=== PATIENT | male | born 1960 | race Caucasian/White ===

== ENCOUNTER 2016-09-20 16:12 | Emergency (ER) | payer OTHER ==
[~2016-09-20] VITALS: Ht 175.3 cm; Wt 100.0 kg
[2016-09-20 16:13] VITALS: BP 158/82; PULSE 63; RESP 15; TEMP 97.9; O2SAT 95
--- NOTE | 2016-09-20 17:20 | PD ---
HPI Chief Complaint: Pain: Acute or Chronic Time Seen by Provider: 17:20 Travel History International Travel<30 days: No Contact w/Intl Traveler<30days: No Traveled to known affect area: No History of Present Illness HPI 46-year-old male with PMH of multiple shoulder dislocations presents to the ED for evaluation of 3 day history of right shoulder pain. He can identify no acute injury. He states that he is unable to move the arm through normal range of motion. He denies numbness, tingling of the extremity. He was seen at the [place] and states that he had a "pain shot" in the buttock before presenting to the ED today. PFSH Social History Tobacco Use: No Allergies-Medications (Allergen,Severity, Reaction): Coded Allergies: Codeine (Verified Allergy, Severe, Anaphylaxis, 09/20/16) Reported Meds & Prescriptions Reported Meds & Active Scripts Active No Active Prescriptions or Reported Medications Review of Systems Except as stated in HPI: all other systems reviewed are Neg Physical Exam Narrative GENERAL: Well-nourished, well-developed white male in no acute distress. SKIN: Warm and dry. HEAD: Normocephalic. EYES: No scleral icterus. No injection or drainage. NECK: Supple, trachea midline. No JVD or lymphadenopathy. CARDIOVASCULAR: Regular rate and rhythm without murmurs, gallops, or rubs. RESPIRATORY: Breath sounds equal bilaterally. No accessory muscle use. GASTROINTESTINAL: Abdomen soft, non-tender, nondistended. MUSCULOSKELETAL: No cyanosis, or edema. FOCUSED RIGHT UPPER EXTREMITY EXAM: Right arm is in a sling. There is visible deformity of the right shoulder, mildly depressed as compared to the left shoulder. Tender to palpation of the anterior and posterior aspects of the right shoulder and proximal humerus. 5/5 media relations associate strength. Sensation intact to light touch distally. 2+ radial pulse. Cap refill less than 2 seconds. BACK: Nontender without obvious deformity. No CVA tenderness. Data Data Last Documented VS Vital Signs Date Time Temp Pulse Resp B/P Pulse Ox O2 Delivery O2 Flow Rate FiO2 09/20/16 16:13 97.9 63 15 158/82 95 Orders Shoulder, Complete (>2vws) (09/20/16 17:18) MDM Medical Decision Making Medical Screen Exam Complete: Yes Emergency Medical Condition: Yes Differential Diagnosis Fracture versus dislocation versus musculoskeletal pain versus other Narrative Course 46-year-old male with PMH of multiple shoulder dislocations presents to the ED for evaluation of 3 day history of right shoulder pain. He can identify no acute injury. He states that he is unable to move the arm through normal range of motion. He denies numbness, tingling of the extremity. He was seen at the [facility] and states that he had a "pain shot" in the buttock before presenting to the ED today. Vitals reviewed. Physical exam reveals a nontoxic appearing white male in no acute distress. The right arm is in a sling. There does appear to be some depression of the right shoulder as compared to the left. Patient has a strong media relations associate strength and is neurovascularly intact. Difficulties moving the arms through range of motion secondary to pain. X-ray of the right shoulder was ordered and pending. This patient is signed out to CHAVEZ Gann. Please see her note for disposition. Scripts No Active Prescriptions or Reported Meds Lexi Jung Sep 20, 2016 17:20
--- NOTE | 2016-09-20 20:20 | RADRPT ---
EXAM DATE/TIME: 09/20/2016 17:56 [facility] COMPARISON: No previous studies available for comparison. INDICATIONS : Right shoulder pain, no known injury. MEDICAL HISTORY : None. SURGICAL HISTORY : None. ENCOUNTER: Initial ACUITY: 2 days PAIN SCORE: 7/10 LOCATION: Right shoulder FINDINGS: No fracture is seen. The glenohumeral and acromioclavicular joints are normally aligned . There is chronic mature calcification seen adjacent to the posterior and lateral aspects of the ac romion and shoulder region. This likely reflects hypertrophic change from prior injury. CONCLUSION: Chronic calcific densities adjacent to the posterior and lateral aspect of the should er likely from prior injury. Niles Jiménez MD on September 20, 2016 at 18:21 Board Certified Radiologist. This report was verified electronically.
[2016-09-20] MEDS ORDERED: KETOROLAC TROMETHAMINE 60 MG/2 ML (IM) VIAL IM ONE (20:30)
--- NOTE | 2016-09-20 20:30 | PD ---
Physical Exam Time Seen by Provider: 20:29 Narrative Patient is signed out to me with x-ray imaging pending. Please refer to previous providers documentation to tell surrounding patient's current visit. Data Data Last Documented VS Vital Signs Date Time Temp Pulse Resp B/P Pulse Ox O2 Delivery O2 Flow Rate FiO2 09/20/16 20:42 98.2 89 16 152/87 97 Orders Shoulder, Complete (>2vws) (09/20/16 17:18) Ketorolac Inj (Toradol Inj) (09/20/16 20:30) [facility] Medical Record Reviewed: Yes Supervised Visit with AURELIA: No Narrative Course X-ray imaging is complete. This shows no fracture. There are calcifications adjacent to the shoulder joint, likely from prior injury. Patient is to remain in a splint. The affected extremity remains neurovascularly intact. [facility] have [facility] Outpatient MRI may be warranted. He agrees to return immediately with any acute worsening symptoms. Diagnosis Primary Impression: Right shoulder pain Qualified Code: M25.511 - Right shoulder pain, unspecified chronicity Additional Impression: Shoulder dislocation, recurrent Qualified Code: M24.411 - Shoulder dislocation, recurrent, right Referrals: Orthopedist Primary Care Physician Patient Instructions: General Instructions, Shoulder Dislocation Exercises (GEN ) Additional Instruction: Ice to the affected area may help to alleviate pain Follow-up the primary care provider Sling for support Seek orthopedic evaluation. Patient MRI may be warranted Return immediately to the emergency department with any acute worsening symptoms Med/Other Pt SpecificInfo: Prescription(s) given Scripts Meloxicam (Mobic)15 Mg Tab15 Mg PO DAILY PRN (PAIN SCALE 1 TO 10) #15 TAB Ref 0 Prov:Alanna Bear 09/20/16 Disposition: 01 DISCHARGE HOME Condition: Stable Alanna Bear Sep 20, 2016 20:30
[2016-09-20] MEDS ORDERED: MOBI15TA PO (20:31)
[2016-09-20 20:42] VITALS: BP 152/87; TEMP 98.2
== END 2016-09-20 20:43 | disposition home or self-care (01) ==
LOC: NEPB 16:12
DX: M25.511 Pain in right shoulder (principal); M24.411 Recurrent dislocation, right shoulder; Z87.39 Personal history of other diseases of the musculoskeletal system and connective tissue
CPT/HCPCS: 73030; 96372; 99283; J1885